=== PATIENT | male | born 1950 | race Two or more races ===

== ENCOUNTER → 2020-06-23 | Outpatient (CLI) | payer MEDICARE ==
[~2020-06-23] MED LIST: CELE200C PO; LISI1TAB39 PO
[2020-06-23 10:13] LABS: ALBUMIN 4.3 g/dL (3.4-5.0); ANION GAP 4 mmol/L (5-15); CALCIUM 9.2 mg/dL (8.5-10.1); CHLORIDE 100 mmol/L (98-107)
[2020-06-23 10:17] LABS: ALANINE AMINOTRANSFERASE 23 U/L (12-78); ALKALINE PHOSPHATASE 48 U/L (45-117); BILIRUBIN,TOTAL 0.6 mg/dL (0.2-1.0); CREATININE 1.12 mg/dL (0.7-1.3); TOTAL PROTEIN 8.1 g/dL (6.4-8.2)
== END | disposition home or self-care (01) ==
LOC: STAR 08:25
PROVIDERS: ATTEND Orthopaedic Surgery
DX: Z01.818 Encounter for other preprocedural examination (principal); M75.121 Complete rotator cuff tear or rupture of right shoulder, not specified as traumatic; I44.4 Left anterior fascicular block; Z20.828 Contact with and (suspected) exposure to other viral communicable diseases
CPT/HCPCS: 36415; 80053; 87635; 93005

== ENCOUNTER 2020-06-29 09:43 | Day surgery (SDC) | payer MEDICARE ==
[~2020-06-29] VITALS: Ht 165.1 cm; Wt 72.6 kg
[2020-06-29 10:17] VITALS: BP 128/80
[2020-06-29] MEDS ORDERED: CHLORHEXIDINE 15 ML UDC MM ONE (10:30)
[2020-06-29] MEDS ORDERED: LACTATED RINGERS 1,000 ML IV SCH (10:30)
[2020-06-29] MEDS ORDERED: BUPIVACAINE/PF 0.5% ONE (10:33)
[2020-06-29] MEDS ORDERED: EPINEPHRINE 1 MG/ML, 1ML ONE ×3 (10:34→12:57)
[2020-06-29] MEDS ORDERED: DEXAMETHASONE 4 MG/ML, 1ML ONE (11:44)
[2020-06-29] MEDS ORDERED: GLYCOPYRROLATE 0.2MG/1ML, 5ML ONE (11:44)
[2020-06-29] MEDS ORDERED: PHENYLEPHRINE 10 MG/ML ONE (11:44)
[2020-06-29] MEDS ORDERED: EPHEDRINE 50 MG/ML, 1ML ONE (11:44)
[2020-06-29] MEDS ORDERED: ONDANSETRON 2MG/ML, 2ML ONE (11:44)
[2020-06-29] MEDS ORDERED: PROPOFOL 10 MG/ML, 20ML ONE (11:44)
[2020-06-29] MEDS ORDERED: NEOSTIGMINE 1 MG/ML, 10ML ONE (11:44)
[2020-06-29] MEDS ORDERED: CEFAZOLIN 1,000 MG ONE (11:44)
[2020-06-29] MEDS ORDERED: ROCURONIUM 10MG/ML,5ML ONE (11:44)
[2020-06-29] MEDS ORDERED: LIDOCAINE-MPF 1%, 2ML ONE (11:44)
[2020-06-29] MEDS ORDERED: SUCCINYLCHOLINE 20 MG/ML, 10ML ONE (11:44)
[2020-06-29] MEDS ORDERED: FENTANYL PF 250 MCG/5ML ONE (11:47)
[2020-06-29] MEDS ORDERED: hydrALAzine 20 MG/ML, 1ML IV PRN (12:30)
[2020-06-29] MEDS ORDERED: PROMETHAZINE 25 MG/ML, 1ML IVPush PRN (12:30)
[2020-06-29] MEDS ORDERED: LORazepam 2 MG/ML, 1ML IVPush PRN (12:30)
[2020-06-29] MEDS ORDERED: LABETALOL 5MG/ML, 20ML IV PRN (12:30)
[2020-06-29] MEDS ORDERED: HYDROmorphone 1 MG/ML, 1ML INJ IVPush PRN (12:30)
[2020-06-29] MEDS ORDERED: METHOCARBAMOL 1,000 MG in DEXTROSE 5% 100 ML IV PRN (12:30)
[2020-06-29] MEDS ORDERED: FENTANYL PF 100 MCG/2ML IV PRN (12:30)
[2020-06-29] MEDS ORDERED: ONDANSETRON 2MG/ML, 2ML IVPush PRN (12:30)
[2020-06-29] MEDS ORDERED: OXYcodone 5 MG/5 ML ORAL.SOL UDC PO PRN (12:30)
[2020-06-29] MEDS ORDERED: MEPERIDINE/PF 25MG/0.5ML IVPush PRN (12:30)
[2020-06-29] MEDS ORDERED: ACETAMINOPHEN 325 MG TABLET PO PRN (12:30)
[2020-06-29] MEDS ORDERED: EPHEDRINE 50 MG/ML, 1ML IVPush PRN (12:30)
== END 2020-06-29 15:30 | disposition home or self-care (01) ==
LOC: OUT 09:43
PROVIDERS: ATTEND Orthopaedic Surgery
DX: M75.121 Complete rotator cuff tear or rupture of right shoulder, not specified as traumatic (principal); M19.011 Primary osteoarthritis, right shoulder; M75.01 Adhesive capsulitis of right shoulder; G89.18 Other acute postprocedural pain; I10 Essential (primary) hypertension; Z79.891 Long term (current) use of opiate analgesic; Z79.899 Other long term (current) drug therapy
CPT/HCPCS: 29824; 29826; 29827; 64415; C1713; J0171; J0330; J0690; J1100; J2370; J2405; J2704; J2710; J3010; J7120